=== PATIENT | male | born 1950 | race Caucasian/White ===

== ENCOUNTER 2024-12-29 13:00 | Inpatient (IN) | payer MEDICARE, OTHER ==
[~2024-12-29] VITALS: Ht 170.2 cm; Wt 65.3 kg
[2024-12-29] MEDS: IV NORMAL SALINE 1000 ML BAG IV ONE (13:33)
[2024-12-29 13:36] LABS: BASOPHILS % (AUTO) 0.2 % (0.0-2.0); HEMOGLOBIN 13.1 g/dL (12.5-16.3); LYMPHOCYTES # (AUTO) 0.7 K/uL (0.8-4.8); LYMPHOCYTES % (AUTO) 4.4 % (20.5-51.5); MEAN CORPUSCULAR HEMOGLOBIN 29.5 uug (23.8-33.4); MEAN CORPUSCULAR HGB CONC 33 g/dL (32.5-36.3); MEAN CORPUSCULAR VOLUME 89.8 fL (73.0-96.2); MONOCYTES % (AUTO) 12.2 % (0.0-11.0); NEUTROPHILS % (AUTO) 83.2 % (38.5-71.5); PLATELET COUNT (AUTO) 178 K/uL (152-348); RED BLOOD CELL COUNT(AUTO) 4.45 MIL/uL (4.06-5.63); RED CELL DISTRIBUTION WIDTH 14.9 % (12.1-16.2); WHITE BLOOD COUNT (AUTO) 16.8 K/uL (3.6-10.2)
[2024-12-29] MEDS ORDERED: VALB40CA2 PO (13:38)
[2024-12-29] MEDS ORDERED: RIVA10TA PO (13:38)
[2024-12-29 13:40] LABS: DIFFERENTIAL COMMENT 1
[2024-12-29 13:44] LABS: CALCIUM 8.7 mg/dL (8.5-10.1); CARBON DIOXIDE 29 mmol/L (21-32); CHLORIDE 97 mmol/L (98-107); CREATININE 0.7 mg/dL (0.6-1.3); GLUCOSE 118 mg/dL (74-106); POTASSIUM 4.2 mmol/L (3.5-5.1); SODIUM SERUM 134 mmol/L (136-145); UREA NITROGEN, BLOOD 11 mg/dL (7-18)
[2024-12-29 13:56] LABS: ALANINE AMINOTRANSFERASE 8 U/L (16-63); ALBUMIN 2.4 g/dL (3.4-5.0); ALKALINE PHOSPHATASE 72 U/L (50-136); ASPARTATE AMINOTRANSFERASE 7 U/L (15-37); BILIRUBIN,DIRECT 0.2 mg/dL (0.0-0.2); BILIRUBIN,TOTAL 0.4 mg/dL (0.2-1.0); NT-PRO BNP 502 pg/mL (0-125); TOTAL PROTEIN, SERUM 6.5 g/dL (6.4-8.2)
[2024-12-29] MEDS: PIPERACILLIN SODIUM/TAZOBACTAM 3.375 G in IV DEXTROSE 5% 50 ML IV ONE (14:00)
[2024-12-29] MEDS ORDERED: PIPERACILLIN/TAZOBACTAM/D5W 50 ML IV ONE (14:01)
[2024-12-29] MEDS ORDERED: HALOPERIDOL LACTATE 5 MG/1 ML VIAL ONE (14:22)
[2024-12-29] MEDS ORDERED: diphenhydrAMINE 50 MG/1 ML VIAL ONE (14:22)
[2024-12-29] MEDS ORDERED: LORAZEPAM 2 MG/1 ML VIAL ONE (14:23)
[2024-12-29 14:25] LABS: ABG BASE EXCESS 1.4 mmol/L (-2.0-3.0); ABG HCO3 25.3 mmol/L (21.0-28.0); ABG PCO2 37.6 mmHg (35.0-48.0); ABG PH 7.446 (7.350-7.450); ABG PO2 74.7 mmHg (83.0-108.0); ABG SITE LEFT RADIAL; ABG TOTAL HEMOGLOBIN 13.7 G/dL (13.5-17.5); AaDO2 95.6 mmHg; COHb 1.3 % (0.5-1.5); MetHb 0.3 % (0.0-1.5); O2Hb 94.2 % (94.0-98.0)
[2024-12-29] MEDS: LORAZEPAM 2 MG/1 ML VIAL IV ONE (14:31)
[2024-12-29] MEDS: diphenhydrAMINE 50 MG/1 ML VIAL IV ONE (14:31)
[2024-12-29] MEDS: HALOPERIDOL LACTATE 5 MG/1 ML VIAL IV ONE (14:31)
[2024-12-29] MEDS ORDERED: VANCOMYCIN IV 200 ML ONE (14:35)
[2024-12-29] MEDS: VANCOMYCIN IV 1,000 MG in IV DEXTROSE 5% 250 ML IV ONE (14:40)
[2024-12-29 14:50] LABS: ETHANOL < 3 MG/DL (0-10)
[2024-12-29 15:00] LABS: ACETAMINOPHEN < 2.0 ug/mL (10-30)
[2024-12-29 15:56] LABS: *BILIRUBIN,URIN NEGATIVE (NEGATIVE); *BLOOD, URINE 2+ (NEGATIVE); *CLARITY,URINE CLEAR (CLEAR); *COLOR,URINE YELLOW (YELLOW); *KETONES,URINE NEGATIVE (NEGATIVE); *PROTEIN,URINE NEGATIVE (NEGATIVE); *UROBILINOGEN,URINE 0.2 E.U./dl (NORMAL); LEUKOCYTE ESTERASE ,URINE TRACE (NEGATIVE); NITRITE, URINE NEGATIVE (NEGATIVE); UGLUCOSE NEGATIVE (NEGATIVE)
[2024-12-29 16:05] LABS: *AMPHETAMINE, URINE NEGATIVE (NEGATIVE); *BARBITURATE, URINE NEGATIVE (NEGATIVE); *BENZODIAZEPINE, URINE NEGATIVE (NEGATIVE); *CANNABINOID, URINE NEGATIVE (NEGATIVE); *COCCAINE, URINE NEGATIVE (NEGATIVE); *OPIATE, URINE NEGATIVE (NEGATIVE); *PHENCYCLIDINE SCREEN,URINE NEGATIVE (NEGATIVE); FENTANYL, URINE NEGATIVE (NEGATIVE)
[2024-12-29 16:13] LABS: BACTERIA,URINE FEW /HPF (NONE SEEN); SQUAMOUS EPITHELIAL CELL,UR FEW /HPF (NONE SEEN)
[2024-12-29 19:00] VITALS: BP 114/68; TEMP 97.6; O2SAT 96
[2024-12-29] MEDS ORDERED: CEFTRIAXONE /D5W 50ML IVPB **ER PYXIS IV ONE (19:27)
[2024-12-29] MEDS ORDERED: ONDANSETRON 4 MG/2 ML VIAL IV PRN (19:30)
[2024-12-29] MEDS: IV NS 1000 ML 1,000 ML IV PRN (19:50)
[2024-12-29] MEDS: CEFTRIAXONE 1 G in IV DEXTROSE 5% 50 ML IV SCH (19:50)
[2024-12-29] MEDS: ENOXAPARIN SODIUM 40 MG/0.4 ML DISP.SYRIN SQ SCH (20:11)
[2024-12-30] VITALS: BP 121/52; TEMP 97.8; O2SAT 97
[2024-12-30 04:00] VITALS: BP 122/60; TEMP 97.6; O2SAT 95
[2024-12-30 06:37] LABS: BASOPHILS % (AUTO) 0.2 % (0.0-2.0); EOSINOPHILS % (AUTO) 0.1 % (0.0-7.0); HEMATOCRIT 37.8 % (36.7-47.1); HEMOGLOBIN 12.5 g/dL (12.5-16.3); LYMPHOCYTES # (AUTO) 1.2 K/uL (0.8-4.8); LYMPHOCYTES % (AUTO) 7.6 % (20.5-51.5); MEAN CORPUSCULAR HEMOGLOBIN 29.8 uug (23.8-33.4); MEAN CORPUSCULAR HGB CONC 33 g/dL (32.5-36.3); MEAN CORPUSCULAR VOLUME 90.1 fL (73.0-96.2); MONOCYTES # (AUTO) 1.7 K/uL (0.1-1.30); MONOCYTES % (AUTO) 10.9 % (0.0-11.0); NEUTROPHILS # (AUTO) 12.7 K/uL (1.8-8.9); NEUTROPHILS % (AUTO) 81.2 % (38.5-71.5); PLATELET COUNT (AUTO) 162 K/uL (152-348); RED CELL DISTRIBUTION WIDTH 14.7 % (12.1-16.2); WHITE BLOOD COUNT (AUTO) 15.6 K/uL (3.6-10.2)
[2024-12-30 06:41] LABS: DIFFERENTIAL COMMENT 1
[2024-12-30 06:49] LABS: CALCIUM 8.6 mg/dL (8.5-10.1); CARBON DIOXIDE 28 mmol/L (21-32); CHLORIDE 104 mmol/L (98-107); CREATININE 0.6 mg/dL (0.6-1.3); GLUCOSE 83 mg/dL (74-106); MAGNESIUM 1.8 mg/dL (1.8-2.4); PHOSPHOROUS 3.1 mg/dL (2.5-4.9); POTASSIUM 3.7 mmol/L (3.5-5.1); SODIUM SERUM 138 mmol/L (136-145); UREA NITROGEN, BLOOD 9 mg/dL (7-18)
[2024-12-30 07:30] VITALS: BP 103/52; TEMP 97.5; O2SAT 94
[2024-12-30 11:14] VITALS: BP 108/63; TEMP 98; O2SAT 98
[2024-12-30] MEDS: ACETAMINOPHEN 325 MG TABLET PO PRN (12:08)
[2024-12-30] MEDS: QUETIAPINE FUMARATE 25 MG TABLET PO ONE (12:49)
[2024-12-30 15:38] VITALS: BP 107/63; TEMP 98.9; O2SAT 96
[2024-12-30 19:55] VITALS: BP 102/55; TEMP 97.8; O2SAT 96
[2024-12-31 00:15] VITALS: BP 121/70; TEMP 98.2; O2SAT 97
[2024-12-31 04:54] VITALS: BP 117/72; TEMP 98.9; O2SAT 97
[2024-12-31 06:51] LABS: CALCIUM 8.2 mg/dL (8.5-10.1); CARBON DIOXIDE 26 mmol/L (21-32); CHLORIDE 101 mmol/L (98-107); CREATININE 0.5 mg/dL (0.6-1.3); GLUCOSE 94 mg/dL (74-106); MAGNESIUM 1.8 mg/dL (1.8-2.4); PHOSPHOROUS 2.1 mg/dL (2.5-4.9); POTASSIUM 3.4 mmol/L (3.5-5.1); SODIUM SERUM 135 mmol/L (136-145); UREA NITROGEN, BLOOD 16 mg/dL (7-18)
[2024-12-31 06:52] LABS: BASOPHILS % (AUTO) 0.1 % (0.0-2.0); EOSINOPHILS % (AUTO) 0.1 % (0.0-7.0); HEMATOCRIT 36.9 % (36.7-47.1); HEMOGLOBIN 12.4 g/dL (12.5-16.3); LYMPHOCYTES # (AUTO) 1.4 K/uL (0.8-4.8); LYMPHOCYTES % (AUTO) 9.6 % (20.5-51.5); MEAN CORPUSCULAR HEMOGLOBIN 29.9 uug (23.8-33.4); MEAN CORPUSCULAR HGB CONC 34 g/dL (32.5-36.3); MONOCYTES # (AUTO) 1.6 K/uL (0.1-1.30); MONOCYTES % (AUTO) 10.9 % (0.0-11.0); NEUTROPHILS # (AUTO) 11.7 K/uL (1.8-8.9); NEUTROPHILS % (AUTO) 79.3 % (38.5-71.5); PLATELET COUNT (AUTO) 173 K/uL (152-348); RED BLOOD CELL COUNT(AUTO) 4.14 MIL/uL (4.06-5.63); RED CELL DISTRIBUTION WIDTH 14.5 % (12.1-16.2); WHITE BLOOD COUNT (AUTO) 14.7 K/uL (3.6-10.2)
[2024-12-31 06:59] LABS: DIFFERENTIAL COMMENT 1
[2024-12-31 07:52] VITALS: BP 116/70; TEMP 98.6; O2SAT 97
[2024-12-31] MEDS: ARGININE/GLUTAMINE/CALCIUM BMB 1 EACH POWD.PACK PO SCH (08:18)
[2024-12-31] MEDS: POTASSIUM CHLORIDE 20 MEQ TAB.PRT.SR PO ONE (11:05)
[2024-12-31 12:00] VITALS: BP 124/59; TEMP 99.2; O2SAT 98
[2024-12-31] MEDS: MUPIROCIN 2% OINT 22 GM TUBE NS SCH (14:04)
[2024-12-31 16:00] VITALS: BP 104/57; TEMP 98.3; O2SAT 97
[2024-12-31] MEDS: RIVAROXABAN 10 MG TABLET PO SCH (17:32)
[2024-12-31] MEDS: NEUTRA PHOS PACKET PO ONE (17:32)
[2024-12-31 20:00] VITALS: BP 96/51; TEMP 98.5; O2SAT 95
[2025-01-01] VITALS: BP 99/51; TEMP 97.6; O2SAT 95
[2025-01-01 04:00] VITALS: BP 123/54; TEMP 98.5; O2SAT 97
[2025-01-01 06:53] LABS: CALCIUM 7.9 mg/dL (8.5-10.1); CARBON DIOXIDE 25 mmol/L (21-32); CHLORIDE 101 mmol/L (98-107); CREATININE 0.4 mg/dL (0.6-1.3); GLUCOSE 83 mg/dL (74-106); POTASSIUM 3.7 mmol/L (3.5-5.1); SODIUM SERUM 136 mmol/L (136-145); UREA NITROGEN, BLOOD 17 mg/dL (7-18)
[2025-01-01 08:05] VITALS: BP 106/55; TEMP 98.3; O2SAT 96
[2025-01-01] MEDS ORDERED: MUPI22OI2 NS (10:31)
[2025-01-01] MEDS ORDERED: CEPH500C2 PO (10:31)
[2025-01-01 12:00] VITALS: BP 102/49; TEMP 98.3; O2SAT 96
== END 2025-01-01 13:45 | DRG 689 ==
LOC: ER 13:04 → TELE3 13:34 → MEDSURG3 01-01 11:30
PROVIDERS: ADMIT Nurse Practitioner Acute Care; ATTEND Nurse Practitioner Acute Care
DX: N39.0 Urinary tract infection, site not specified (principal); G93.41 Metabolic encephalopathy; E44.0 Moderate protein-calorie malnutrition; E87.1 Hypo-osmolality and hyponatremia; D68.59 Other primary thrombophilia; C44.309 Unspecified malignant neoplasm of skin of other parts of face; E88.09 Other disorders of plasma-protein metabolism, not elsewhere classified; Z48.3 Aftercare following surgery for neoplasm; Z22.322 Carrier or suspected carrier of Methicillin resistant Staphylococcus aureus; E86.1 Hypovolemia; E87.6 Hypokalemia; I48.91 Unspecified atrial fibrillation; G20.A1 Parkinson's disease without dyskinesia, without mention of fluctuations; Z79.01 Long term (current) use of anticoagulants; E86.0 Dehydration
CPT/HCPCS: 36415; 36600; 71045; 83605; 83735; 84100; 84484; 85025; 85730; 87040; 87086; A4663; C1758; G0378; G0480; J0696; J1200; J1630; J1650; J2060; J2543; J3370; J7040